=== PATIENT | female | born 1970 ===

== ENCOUNTER 2020-09-09 11:21 | Outpatient (CLI) | payer BC ==
--- NOTE | 2020-09-09 12:24 | RAD ---
RIGHT RIB SERIES INDICATION: Right-sided rib pain COMPARISON: None. FINDINGS: Chest : The visualized right lung is clear. No right-sided pneumothorax. Right Ribs: No displaced right-sided rib fracture is demonstrated. IMPRESSION: No displaced right-sided rib fracture
--- NOTE | 2020-09-09 12:25 | RAD ---
XR Lumbar Spine 2 Or 3 View: 09/09/2020 12:00 PM INDICATION: Fall COMPARISON: None FINDINGS: Fracture: None. Alignment: Spinal alignment appears within normal limits. Degenerative Change: There is moderate disc degenerative disease at L5-S1. There is mild disc degene rative disease at L3-4 and L4-5. Bone Mineralization:Normal Soft tissues: No acute abnormality. IMPRESSION: Mild lumbar spondylosis. No acute fracture or subluxation demonstrated.
--- NOTE | 2020-09-09 12:26 | RAD ---
XR Thoracic Spine 3 V STANDARD: 09/09/2020 12:00 PM Back pain COMPARISON: None FINDINGS: Fracture: None. Alignment: Spinal alignment appears within normal limits. No abnormal translational motion is demonst rated. Degenerative Change: There is multilevel mild disc degenerative disease involving the thoracic spine . Prevertebral soft tissues: No abnormality identified. IMPRESSION: Mild thoracic spondylosis
== END 2020-09-09 11:22 | disposition home or self-care (01) ==
LOC: BICRAD 11:21
PROVIDERS: ATTEND Family Medicine
DX: M54.5 Low back pain (principal); M54.6 Pain in thoracic spine; G89.29 Other chronic pain; R07.81 Pleurodynia; M47.814 Spondylosis without myelopathy or radiculopathy, thoracic region; M47.816 Spondylosis without myelopathy or radiculopathy, lumbar region
CPT/HCPCS: 72072; 72100